=== PATIENT | female | born 1955 ===

== ENCOUNTER 2021-12-03 06:00 | Day surgery (SDC) | payer OTHER | END 2021-12-03 11:35 | disposition home or self-care (01) | LOC: AMB-ENDOS 06:00 | PROVIDERS: ATTEND Surgery | DX: D12.4 Benign neoplasm of descending colon (principal); Z20.822 Contact with and (suspected) exposure to COVID-19; E11.9 Type 2 diabetes mellitus without complications; E78.5 Hyperlipidemia, unspecified; Z79.84 Long term (current) use of oral hypoglycemic drugs ==

== ENCOUNTER 2022-06-03 06:27 | Day surgery (SDC) | payer OTHER | END 2022-06-03 12:45 | disposition home or self-care (01) | LOC: AMB-ENDOS 06:27 | PROVIDERS: ATTEND Surgery | DX: K63.5 Polyp of colon (principal); D37.4 Neoplasm of uncertain behavior of colon; K92.1 Melena; Z20.822 Contact with and (suspected) exposure to COVID-19; E11.9 Type 2 diabetes mellitus without complications; E78.5 Hyperlipidemia, unspecified ==